=== PATIENT | male | born 1990 | race African-American/Black ===

== ENCOUNTER 2018-06-20 01:56 | Emergency (ER) | payer SELFPAY ==
[~2018-06-20] VITALS: Ht 175.3 cm; Wt 81.8 kg
--- NOTE | 2018-06-20 02:24 | NUR ---
5 BAGS SECURED AND LABELED IN LOCKER, LARGE BLUE SUITCASE, RED DUFFLE BAG, GREEN SANJU PACK, BLACK HANDELED SOFT BAG FULL OF CLOTHING, PT PHONE IN WITH BELONINGS WELL.
--- NOTE | 2018-06-20 02:25 | NUR ---
PT STANDING IN BATHROOM IN ROOM PEAKING OUT DOOR, VERY PARANOID BUT DIRECTABLE.
[2018-06-20] MEDS ORDERED: ZIPRASIDONE 20 MG INJ IM ONE ×2 (02:28→03:00)
--- NOTE | 2018-06-20 02:58 | NUR ---
THIS RN AT BS WITH SENIOR LEAD DEVELOPER FOR BLOOD DRAW. PT. NOW RESTING ON GURNEY WITH EYES CLOSED. EVEN, NON-LABORED RESPIRATIONS VISIBLE. JESENIA.
[2018-06-20 03:02] LABS: AMPHETAMINE SCREEN, URINE Positive (Negative); BARBITURATE SCREEN, URINE Negative (Negative); BENZODIAZEPINE SCREEN, URINE Negative (Negative); CANNABINOID SCREEN, URINE Positive (Negative); COCAINE SCREEN, URINE Negative (Negative); METHADONE SCREEN, URINE Negative (Negative); OPIATE SCREEN, URINE Negative (Negative)
[2018-06-20 03:03] LABS: BASOPHILS # (AUTO) 0.01 x10^3/uL (0-0.1); BASOPHILS % (AUTO) 0 % (0-1); EOSINOPHILS % (AUTO) 0 % (1-7); LYMPHOCYTES # (AUTO) 0.73 x10^3/uL (1-3.4); LYMPHOCYTES % (AUTO) 14 % (22-44); MD NO; MEAN CORPUSCULAR HEMOGLOBIN 31.9 pg (27.5-34.5); MEAN CORPUSCULAR HGB CONC 34.4 g/dL (33.2-36.2); MEAN CORPUSCULAR VOLUME 92.8 fL (81-97); MEAN PLATELET VOLUME 8.2 fL (7.4-10.4); MONOCYTES # (AUTO) 0.38 x10^3/uL (0.2-0.8); MONOCYTES % (AUTO) 7 % (2-9); NEUTROPHILS # (AUTO) 4.12 x10^3/uL (1.8-6.8); NEUTROPHILS % (AUTO) 79 % (42-75); PLATELET COUNT 206 x10^3/uL (130-400); RED BLOOD COUNT 4.89 x10^6/uL (4.38-5.82)
[2018-06-20 03:10] LABS: ALANINE AMINOTRANSFERASE 26 U/L (12-78); ALBUMIN 4.2 g/dL (3.4-5.0); ANION GAP 10 mmol/L (5-15); CALCIUM 8.7 mg/dL (8.5-10.1); CHLORIDE 107 mmol/L (98-107); CREATININE 1.02 mg/dL (0.7-1.3); SALICYLATE LEVEL 4.3 mg/dL (2.8-20.0)
[2018-06-20 03:12] LABS: ALKALINE PHOSPHATASE 92 U/L (45-117); BILIRUBIN,TOTAL 0.5 mg/dL (0.2-1.0); TOTAL PROTEIN 8.4 g/dL (6.4-8.2)
[2018-06-20 03:13] LABS: ACETAMINOPHEN < 2 mcg/mL (10-30)
--- NOTE | 2018-06-20 03:55 | NUR ---
PT. RESTING ON GURNY RIGHT SIDE LYING WITH EYES CLOSED. NADN. EVEN, NON-LABORED RESPIRATIONS.
--- NOTE | 2018-06-20 05:37 | NUR ---
PT. RESTING ON GURNEY IN RIGHT SIDE LYING POSITION. NADN, RESP EVEN, NON-LABORED. ROOM REMAINS SECURED.
[2018-06-20 06:21] VITALS: BP 109/66
--- NOTE | 2018-06-20 06:22 | NUR ---
DR. PETERS AT BS TO RE-EVAL PT. PT. NOW A&O X 4 AND COOPERATIVE WITH EXAM/VS. PT. REPORTS "I DID METH LAST NIGHT AND I DON'T DO THAT". PT. REPORTS HE IS FROM [place], [place] AND PLANS TO TAKE THE AMTRAK HOME TODAY. PT. DENIES ANY SI/HI ANS IS NO LONGER PARANOID. PER DR. PETERS PT. TO D/C. BELONGINGS RETURNED TO PT. AT THIS TIME.
--- NOTE | 2018-06-20 07:04 | NUR ---
AFTER RETURNING PT. JODIE PT. HANDED THIS RN A CELLPHONE BOX CONTAINING A PACKET OF WHITE POWDER AND A PIPE. PT. ASKED THIS RN TO GET RID OF IT BECAUSE HE NEVER WANTED TO SEE IT AGAIN. THIS WAS TURNED IN TO RUPINDER.
== END 2018-06-20 07:03 | disposition home or self-care (01) ==
LOC: ED 06:55
DX: F23 Brief psychotic disorder (principal); F14.129 Cocaine abuse with intoxication, unspecified; F15.129 Other stimulant abuse with intoxication, unspecified; Z72.9 Problem related to lifestyle, unspecified
CPT/HCPCS: 36415; 80053; 80307; 80329; 85025; 96372; 99284; J3486; G0480